=== PATIENT | female | born 1975 | race African-American/Black ===

== ENCOUNTER 2020-08-18 23:55 | Emergency (ER) | payer SELFPAY ==
[~2020-08-18] VITALS: Ht 157.5 cm; Wt 86.2 kg
[2020-08-19 05:10] VITALS: BP 129/72
== END 2020-08-19 05:56 | disposition home or self-care (01) ==
LOC: EDBD 23:55 → ER 08-19 00:01
DX: F12.129 Cannabis abuse with intoxication, unspecified (principal); R11.2 Nausea with vomiting, unspecified